=== PATIENT | male | born 1980 | race African-American/Black ===

== ENCOUNTER 2018-09-15 17:06 | Emergency (ER) | payer OTHER ==
[~2018-09-15] VITALS: Ht 175.3 cm; Wt 82.5 kg
[2018-09-15] MEDS ORDERED: ACETAMINOPHEN 500 MG TABLET PO ONE (18:45)
[2018-09-15] MEDS ORDERED: KETOROLAC TROMETHAMINE 30 MG/ML VIAL IVP ONE (18:45)
[2018-09-15 20:14] VITALS: BP 110/80
== END 2018-09-15 20:16 | disposition home or self-care (01) ==
LOC: EMS 17:07
DX: S43.402A Unspecified sprain of left shoulder joint, initial encounter (principal); W20.8XXA Other cause of strike by thrown, projected or falling object, initial encounter; Y93.89 Activity, other specified; Y92.89 Other specified places as the place of occurrence of the external cause; Y99.0 Civilian activity done for income or pay
CPT/HCPCS: 29105; 73030; 96374; 99283; J1885